=== PATIENT | male | born 1960 | race Two or more races ===

== ENCOUNTER 2019-08-03 17:50 | Emergency (ER) | payer MEDICAID ==
[~2019-08-03] VITALS: Ht 177.8 cm; Wt 113.4 kg
[~2019-08-03 17:50] MED LIST: METF-370 PO
[2019-08-03] MEDS ORDERED: EPINEPHrine HCL 1 MG/10 ML SYRG IV ONE (17:55)
[2019-08-03] MEDS ORDERED: SODIUM BICARBONATE 8.4% INJ 50ML SYRINGE IV ONE (17:55)
[2019-08-03] MEDS ORDERED: SODIUM BICARBONATE 8.4% INJ 50ML SYRINGE ONE (17:59)
== END 2019-08-03 19:30 | disposition expired ==
LOC: EDBD 17:50 → ER 17:54
DX: J96.90 Respiratory failure, unspecified, unspecified whether with hypoxia or hypercapnia (principal); I46.9 Cardiac arrest, cause unspecified; F17.210 Nicotine dependence, cigarettes, uncomplicated; E11.9 Type 2 diabetes mellitus without complications; Z79.84 Long term (current) use of oral hypoglycemic drugs
CPT/HCPCS: 92950; 99285; J0171